=== PATIENT | female | born 1985 | race Caucasian/White ===

== ENCOUNTER 2019-08-06 08:37 | Emergency (ER) | payer BC ==
--- OUTSIDE RECORDS SUMMARY | 2019-08-06 08:45 | XMS REPORT | Continuity of Care Document ---
:1985 External Reference #:[id number] Author Name Shanae Cruz MD (transmitted by agent of provider Dinora Katz) Address [address] [place] [address] Care Team Providers Name Role Phone Renuka Barajas M.D. - Family Medicine Care Team Information Restaurant Area Director [phone] Problems Active Problems Provider Date Acne Arlene De Los Santos M.D. Onset: 11/14/2011 Social History Type Date Description Comments Sex Unknown ETOH Use Occasionally consumes 12 drinks weekly alcohol Tobacco Use Start: Unknown Patient has never smoked Recreational Drug Use Denies Drug Use Smoking Status Reviewed: 06/10/19 Patient has never smoked Allergies, Adverse Reactions, Alerts Active Allergies Reaction Severity Comments Date Doxycycline rash 04/23/2019 Inactive Allergies NKDA 03/25/2019 Medications Active Medications SIG Qnty Indications Ordering Provider Date Collagen Ultra [place] Unknown Powder collagen hydrolysate: 1tbsp daily History Medications Amoxicillin one by mouth 21tabs A69.20 Renuka Barajas MD 04/20/2019 - 500mg three times a 06/10/2019 Tablets day for 7 days Doxycycline 1 twice a day x 28caps Renuka Barajas MD 04/05/2019 - Monohydrate 14 days 04/20/2019 100mg Capsules Immunizations CPT Code Status Date Vaccine Lot # [id number] Given 11/14/2011 Tdap - Tetanus/Diptheria/Acellular Pertussis [id number] Given 11/13/2001 Hepatitis B Vaccine Adult Dosage Vital Signs Date Vital Result Comment 06/10/2019 12:58pm Height 66 inches 5'6" Weight 137.00 lb Heart Rate 70 /min BP Systolic Sitting 112 mmHg BP Diastolic Sitting 72 mmHg Body Temperature 98.6 F O2 % BldC Oximetry 99 % BMI (Body Mass Index) 22.1 kg/m2 04/23/2019 8:22am Height 66 inches 5'6" Weight 136.00 lb Heart Rate 72 /min BP Systolic Sitting 114 mmHg BP Diastolic Sitting 64 mmHg Respiratory Rate 14 /min Body Temperature 97.7 F BMI (Body Mass Index) 21.9 kg/m2 Results Test Acquired Facility Test Result H/L Range Note Date Laboratory 03/25/2019 [facility] Lyme Screen W/ Positive Abnormal Negative 1 test finding [address] [address] [phone] Lyme Disease 03/25/2019 [facility] IgG Immunoblot Positive Abnormal Negative AB Immunoblot [address] [place] [address] [phone] IgG detected against See Comment kDa 2 IgM Immunoblot Positive Abnormal Negative IgM detected against p41,p39,p23 kDa Lyme Disease Interpretation See Comment 3 1 Sent to reference laboratory for confirmatory testing. 2 RESULT: p66,p45,p41,p39,p30,p23,p18 3 Consistent with active or previous infection for B. burgdorferi. IgM blot criteria is of diagnostic utility only during the first 4 weeks of early Lyme disease. ADDITIONAL INFORMATION Per CDC criteria, the Lyme IgG Immunoblot is interpreted as positive if IgG-class antibodies are detected to >=5 B. burgdorferi proteins, and the Lyme IgM Immunoblot is interpreted as positive if IgM-class antibodies are detected to >=2 B. burgdorferi proteins. Immunoblot patterns not meeting these criteria should not be interpreted as positive. Epitopes from certain B. burgdorferi proteins (e.g., p41) are conserved across other bacteria, which may lead to the detection of IgM- and/or IgG-class antibodies on the Lyme disease immunoblots in patients without Lyme disease. Immunoblot should only be ordered on specimens that are positive or equivocal by a FDA-licensed Lyme disease antibody screening test (e.g., EIA). Results of the Lyme IgM immunoblot should not be considered in patients with >= 30 days of symptoms. Test Performed by: [facility] [address] [place] [address] Piano Accompanist: Mendel Mead M.D. Ph.D.; IA# [id number] Procedures Description No Information Available Medical Devices Description No Information Available Encounters Type Date Location Provider Dx Diagnosis Office Visit 04/23/2019 [facility] For Lucille Kristyrachael A69.20 Lyme disease, 8:30a Infectious STEVIE Noonan unspecified Diseases L27.0 Gen skin eruption due to drugs and meds taken internally T36.4x5A Adverse effect of tetracyclines, initial encounter Office Visit 04/20/2019 1:40p [facility] Internal Renuka Barajas MD L27.0 Gen skin eruption Medicine - [facility] due to drugs and meds taken internally A69.20 Lyme disease, unspecified T36.4x5A Adverse effect of tetracyclines, initial encounter Office Visit 03/25/2019 3:20p [facility] Internal Renuka Barajas MD M25.561 Pain in right Medicine - [facility] knee S80.861A Insect bite (nonvenomous), right lower leg, init encntr R53.83 Other fatigue Assessments Date Code Description Provider 06/10/2019 Z00.00 Encounter for general adult medical Shanae Cruz MD examination without abnormal findings 06/10/2019 R53.83 Other fatigue Shanae Cruz MD 04/23/2019 A69.20 Lyme disease, unspecified Lucille Noonan NP 04/23/2019 L27.0 Generalized skin eruption due to Lucille Noonan NP drugs and medicaments taken internally 04/23/2019 T36.4x5A Adverse effect of tetracyclines, Lucille Noonan NP initial encounter 04/20/2019 L27.0 Generalized skin eruption due to Renuka Barajas MD drugs and medicaments taken internally 04/20/2019 A69.20 Lyme disease, unspecified Renuka Barajas MD 04/20/2019 T36.4x5A Adverse effect of tetracyclines, Renuka Barajas MD initial encounter 03/25/2019 M25.561 Pain in right knee Renuka Barajas MD 03/25/2019 S80.861A Insect bite (nonvenomous), right Renuka Barajas MD lower leg, initial encounter 03/25/2019 R53.83 Other fatigue Renuka Barajas MD Plan of Treatment Future Appointment(s):06/13/2020 4:00 pm - [facility] Shanae Cruz MDZ00.00 Encounter for general adult medical examination without abnormal findingsComments:You are up to date with labs For screening:-- Cervical Cancer Screening is up to dateFor Immunizations, you are due for:--Flu vaccination- declined todayFollow up:1 year for bhzswzY34.83 Other fatigueComments:Completed treatment for Lyme Functional Status Description No Information Available Mental Status Description No Information Available Referrals Refer to Dr Reason for Referral Status Appt Date Andres Hopkins MD pt with recent Lyme infection, still feels Sent 04/2019 symptomatic with fatigue and arthralgia [address] [facility] [place] [address] [place] [address] [phone]
[2019-08-06 08:51] VITALS: BP 108/71
--- NOTE | 2019-08-06 10:38 | UC ---
Ear Complaint HPI - HPI Summary HPI Summary: 33-year-old female presenting with left ear feeling plugged 2 days. Patient states that the feeling comes and goes. She also feels as though it is interfering with her balance at times. Patient believes she might have wax buildup. She does know nasal congestion 1 week. Denies right ear symptoms. Denies trying anything for symptom relief. - History of Current Complaint Chief Complaint: UCEar Stated Complaint: EAR PLUGGED Hx Obtained From: Patient Hx Last Menstrual Period: iud Pain Intensity: 0 - Allergies/Home Medications Allergies/Adverse Reactions: Allergies Allergy/AdvReac Type Severity Reaction Status Date / Time doxycycline Allergy Rash Verified 08/06/19 08:51 Home Medications: Home Medications Ascorbic Acid/Collagen Hydr [Collagen Plus Vit C Capsule] 1 tab PO DAILY [History Confirmed 08/06/19] PMH/Surg Hx/FS Hx/Imm Hx - Surgical History Surgical History: Yes Surgery Procedure, Year, and Place: appy - Family History Known Family History: Positive: Non-Contributory - Social History Alcohol Use: Occasionally Substance Use Type: None Smoking Status (MU): Never Smoked Tobacco Review of Systems All Other Systems Reviewed And Are Negative: No Constitutional: Positive: Negative ENT: Positive: Ear Ache - left ear plugged, Sinus Congestion Respiratory: Positive: Negative Cardiovascular: Positive: Negative Neurological: Positive: Negative Physical Exam Triage Information Reviewed: Yes Appearance: Well-Appearing, No Pain Distress, Well-Nourished Vital Signs: Initial Vital Signs Temp 98.4 F 08/06/19 08:49 Pulse 69 08/06/19 08:49 Resp 16 08/06/19 08:49 BP 108/71 08/06/19 08:49 Pulse Ox 100 08/06/19 08:49 Vital Signs Reviewed: Yes Eyes: Positive: Conjunctiva Clear ENT: Positive: Hearing grossly normal, Pharynx normal, Nasal congestion, Nasal drainage - PND, Uvula midline, Other - Small effusion behind left TM without bulging, erythema, or sign of infection. Landmarks visualized.. Negative: Tonsillar swelling, Tonsillar exudate, Sinus tenderness Neck exam: Normal Neck: Positive: Supple, Nontender, No Lymphadenopathy Respiratory Exam: Normal Respiratory: Positive: Lungs clear, Normal breath sounds, No respiratory distress Cardiovascular Exam: Normal Cardiovascular: Positive: RRR, No Murmur Musculoskeletal Exam: Other - THOMPSON x4 w/oi difficulty Neurological: Positive: Alert Psychological: Positive: Age Appropriate Behavior Skin Exam: Normal - no erythema or ecchymosis Ear Complaint Course/Dx - Course Course Of Treatment: Discussed URI symptoms likely causing congestion backup to ears. No cerumen impaction. Instructed to take decongestant and use nasal spray for symptom relief. Instructed to follow up with PCP if symptoms do not resolve within 7 days. Patient voiced understanding and agreed with plan. - Differential Dx/Diagnosis Differential Diagnosis/HQI/PQRI: URI Provider Diagnosis: Acute middle ear effusion Discharge ED - Sign-Out/Discharge Documenting (check all that apply): Patient Departure All imaging exams completed and their final reports reviewed: No Studies - Discharge Plan Condition: Stable Disposition: HOME Patient Education Materials: Cold Symptoms (ED) Referrals: Renuka Barajas MD [Primary Care Provider] - If Needed Additional Instructions: As discussed, your congestion is causing your ear to feel plugged. It is recommended you take an over the counter decongestant, such as mucinex or sudafed. You may also use nasal saline spray or Flonase for symptomatic relief. Increase your fluid intake. Follow up with your primary care doctor if your symptoms worsen or do not resolve within 7 days. - Billing Disposition and Condition Condition: STABLE Disposition: Home
== END 2019-08-06 10:30 | disposition home or self-care (01) ==
LOC: UCEAST 08:37
DX: H74.92 Unspecified disorder of left middle ear and mastoid (principal); R09.89 Other specified symptoms and signs involving the circulatory and respiratory systems; Z88.1 Allergy status to other antibiotic agents
CPT/HCPCS: 99211; G0463